=== PATIENT | male | born 1935 | race Caucasian/White ===

== ENCOUNTER 2018-12-05 10:25 | Outpatient (CLI) | payer MEDICARE, OTHER ==
[~2018-12-05 10:25] MED LIST: ASCO100T10 PO; BENA10TA74 PO; GLUC-221 PO; MV-M1CAP15 PO; OCUVITE SOFTGE1 EAC1 PO; PRAV40TA3 PO; VITA1TAB20 PO; VITA400C65
[2018-12-05] MEDS ORDERED: MELA3TAB PO (11:51)
[2018-12-05 12:07] LABS: BASOPHILS % (AUTO) 0.7 % (0-1); EOSINOPHILS # (AUTO) 0.2 X10'3 (0-0.9); EOSINOPHILS % (AUTO) 2.8 % (0-6); LYMPHOCYTES # (AUTO) 0.8 X10'3 (1.1-4.8); LYMPHOCYTES % (AUTO) 12.2 % (21-51); MEAN CORPUSCULAR HEMOGLOBIN 31.4 PG (27.0-31.0); MEAN CORPUSCULAR HGB CONC 34.2 g/dL (33.0-36.5); MEAN CORPUSCULAR VOLUME 91.9 FL (78-98); MEAN PLATELET VOLUME 8.6 FL (7.4-10.4); MONOCYTES # (AUTO) 0.8 X10'3 (0-0.9); MONOCYTES % (AUTO) 11.7 % (2-12); NEUTROPHILS % (AUTO) 72.6 % (42-75); PRE OP HEMOGLOBIN 16.1 g/dL (14.0-17.9); PRE OP PLATELET COUNT 232 X10'3 (140-440); RED BLOOD COUNT 5.11 X10'6 (4.70-6.10); RED CELL DISTRIBUTION WIDTH 13.1 % (11.5-14.5)
[2018-12-05 12:12] LABS: PRE OP PROTIME 10.4 SECONDS (9.0-12.0)
[2018-12-05 12:18] LABS: ALBUMIN 3.8 G/DL (3.4-5.0); ALBUMIN/GLOBULIN RATIO 1.1 (1.1-1.5); ALKALINE PHOSPHATASE 50 IU/L (46-116); BLOOD UREA NITROGEN 20 MG/DL (7-18); BUN/CREATININE RATIO 18.5 (5.4-32.0); CALCIUM 9.3 MG/DL (8.5-10.1); CHLORIDE 102 MMOL/L (99-107); CREATININE 1.08 MG/DL (0.60-1.10); PRE OP ALT 31 U/L (30-65); PRE OP ANION GAP 10 (8-16); PRE OP AST 24 U/L (10-37); PRE OP BILIRUB, TOTAL 0.5 MG/DL (0.0-1.0); PRE OP GLUCOSE 100 MG/DL (70-104); PRE OP POTASSIUM 4.4 MMOL/L (3.4-5.1); PRE OP SODIUM 136 MMOL/L (135-145); TOTAL CARBON DIOXIDE 23.7 MMOL/L (24-32); TOTAL PROTEIN 7.3 G/DL (6.4-8.2); eGFR 65 ML/MIN
== END 2018-12-05 23:59 | disposition home or self-care (01) ==
LOC: PRE-OP 10:25 → EDSTATUS 12-10 07:30
PROVIDERS: ATTEND Orthopaedic Surgery
DX: Z01.818 Encounter for other preprocedural examination (principal); R94.31 Abnormal electrocardiogram [ECG] [EKG]; R00.0 Tachycardia, unspecified; I10 Essential (primary) hypertension; Z87.891 Personal history of nicotine dependence
CPT/HCPCS: 36415; 80053; 85025; 85610; 85730; 86885; 86900; 86901; 86920; 87070; 93005

== ENCOUNTER 2018-12-26 08:14 | Day surgery (SDC) | payer MEDICARE, OTHER ==
[2018-12-24 11:00] LABS: BASOPHILS % (AUTO) 0.9 % (0-1); EOSINOPHILS # (AUTO) 0.2 X10'3 (0-0.9); EOSINOPHILS % (AUTO) 3.9 % (0-6); HEMATOCRIT 45.8 % (42.0-52.0); HEMOGLOBIN 15.1 g/dl (14.0-17.9); LYMPHOCYTES # (AUTO) 0.8 X10'3 (1.1-4.8); LYMPHOCYTES % (AUTO) 16.3 % (21-51); MEAN CORPUSCULAR HEMOGLOBIN 30.7 PG (27.0-31.0); MEAN CORPUSCULAR HGB CONC 33.1 g/dL (33.0-36.5); MEAN CORPUSCULAR VOLUME 92.8 FL (78-98); MEAN PLATELET VOLUME 8.6 FL (7.4-10.4); MONOCYTES # (AUTO) 0.7 X10'3 (0-0.9); MONOCYTES % (AUTO) 12.9 % (2-12); NEUTROPHILS # (AUTO) 3.3 X10'3 (1.8-7.7); PLATELET COUNT 188 X10'3 (140-440); RED BLOOD COUNT 4.93 X10'6 (4.70-6.10); RED CELL DISTRIBUTION WIDTH 13.2 % (11.5-14.5); WHITE BLOOD COUNT 5.1 X10'3 (4.5-11.0)
[2018-12-24 11:17] LABS: PARTIAL THROMBOPLASTIN TIME 28 SECONDS (22-32); PROTHROMBIN TIME 10.5 SECONDS (9.0-12.0)
[2018-12-24 11:20] LABS: ALANINE AMINOTRANSFERASE 31 U/L (12-78); ALBUMIN 3.8 G/DL (3.4-5.0); ALBUMIN/GLOBULIN RATIO 1.2 (1.1-1.5); ALKALINE PHOSPHATASE 44 IU/L (46-116); ANION GAP 9 (8-16); ASPARTATE AMINO TRANSFERASE 23 U/L (10-37); BILIRUBIN,TOTAL 0.7 MG/DL (0.1-1.0); BLOOD UREA NITROGEN 16 MG/DL (7-18); BUN/CREATININE RATIO 14.7 (5.4-32.0); CALCIUM 9.1 MG/DL (8.5-10.1); CHLORIDE 103 MMOL/L (99-107); CREATININE 1.09 MG/DL (0.60-1.10); GLUCOSE 96 MG/DL (70-104); POTASSIUM 4.4 MMOL/L (3.5-5.1); SODIUM 140 MMOL/L (135-145); TOTAL CARBON DIOXIDE 27.6 MMOL/L (24-32); eGFR 64 ML/MIN
[~2018-12-26] VITALS: Ht 167.6 cm; Wt 78.5 kg
[2018-12-26] VITALS (13 sets, daily range): BP systolic 115–150; BP diastolic 68–93
[~2018-12-26 08:14] MED LIST changes: -GLUC-221 PO; +MELA3TAB PO; -OCUVITE SOFTGE1 EAC1 PO
[2018-12-26] MEDS ORDERED: LORazepam 0.5 MG tablet PO PRN (08:50)
[2018-12-26] MEDS ORDERED: normal saline 1000ml 1,000 ML IV SCH (08:50)
[2018-12-26] MEDS ORDERED: diphenhydrAMINE 25mg capsule PO PRN (08:50)
[2018-12-26] MEDS ORDERED: nitroGLYCERIN 0.4mg SUBLingual tab SL PRN (08:50)
[2018-12-26] MEDS ORDERED: fentaNYL/PF 50MCG/1 ML 2ML syringe ONE (10:18)
[2018-12-26] MEDS ORDERED: LIDOcaine 1% (10mg/ml)w/preservative injection 20ml MDV ONE (10:18)
[2018-12-26] MEDS ORDERED: iohexol 350 MG/ML 50ML vial IV ONE (10:18)
[2018-12-26] MEDS ORDERED: iohexol 350MG/ML 100ml bottle IV ONE (10:18)
[2018-12-26] MEDS ORDERED: midazolam 2 mg/2 ml injection ONE (10:18)
[2018-12-26] MEDS ORDERED: ondansetron/PF 4mg/2ml inj IV PRN (12:25)
[2018-12-26] MEDS ORDERED: HYDROcodone/acetaminophen 10/325mg tab PO PRN (12:25)
[2018-12-26] MEDS ORDERED: proCHLORperazine 10 MG/2 ml inj IV PRN (12:25)
[2018-12-26] MEDS ORDERED: OXAZEpam 15mg capsule PO PRN (12:25)
[2018-12-26] MEDS ORDERED: HYDROcodone/acetaminophen 5mg/325mg tablet PO PRN (12:25)
== END 2018-12-26 18:30 | disposition home or self-care (01) ==
LOC: SSTAY O 08:14
PROVIDERS: ATTEND Internal Medicine Cardiovascular Disease
DX: I25.10 Atherosclerotic heart disease of native coronary artery without angina pectoris (principal); I10 Essential (primary) hypertension; E78.5 Hyperlipidemia, unspecified; Z87.891 Personal history of nicotine dependence
CPT/HCPCS: 36415; 71046; 80053; 85025; 85610; 85730; 93005; 93458; 99152; A6257; J1644; J2001; J2250; J3010; J7030; Q0163; Q9967; A4620; C1760; C1769

== ENCOUNTER 2019-02-07 05:18 | Inpatient (IN) | payer MEDICARE, OTHER | END 2019-02-10 16:12 | disposition home or self-care (01) | LOC: PAS IN 05:18 → ORTHO 4S 11:15 | PROC: 0SR90J9 Replacement of Right Hip Joint with Synthetic Substitute, Cemented, Open Approach (ICD-10-PCS; principal; 2019-02-07 07:12) | DX: M16.11 Unilateral primary osteoarthritis, right hip (principal) ==